=== PATIENT | male | born 1940 | race Caucasian/White ===

== ENCOUNTER 2025-05-20 13:29 | Outpatient (CLI) | payer OTHER, SELFPAY ==
--- NOTE | ~2025-05-20 | PE_ITS ---
EXAMINATION: PET_PETPSMAST_PT DATE: 05/21/2025 08:13 INDICATION: Prostate cancer TECHNIQUE: 4.583 mCi of Illucix Ga-[id number]) was administered i.v. Low dose computed tomography (CT) images were acquired from the base of the brain to the base of the brain to the proximal thighs for attenuation correction and anatomic localization. Positron emission tomography (PET) images were acquired in the same distribution beginning 67 minutes after injection. Images including fused PET/CT images were reconstructed in axial, coronal, and sagittal planes. Automated exposure control technique was employed. The dose-length product was 635.31mGy-cm. COMPARISON: None FINDINGS: Head/neck: Typical pattern of symmetric physiologic increased activity in the lacrimal, parotid and submandibular glands as well as along the mucosa of the nasal and oral cavities, pharynx and hypopharynx. No pathologically enlarged cervical lymphadenopathy or suspicious foci of increased uptake in the visualized head or neck. Chest: Elevation the right hemidiaphragm. Calcified right lower lobe nodule along with calcified right hilar lymph nodes consistent with old granulomatous disease. No other suspicious pulmonary nodules, pneumonia or pleural effusion. Cardiomegaly. Atherosclerotic coronary artery calcifications.. Postoperative change of median sternotomy and likely coronary artery bypass grafting. No pericardial effusion. Aortic valve calcification. Thoracic aorta is normal in caliber. No pathologically enlarged or PSMA avid thoracic lymphadenopathy. 5.2 x 3.2 cm right subscapularis intramuscular lipoma. Abdomen/pelvis/proximal thighs: Physiologic renal accumulation and excretion of activity in the kidneys, bladder and along portions of ureters. Mild prostatomegaly measuring 4.1 x 3.0 cm with a couple regions of increased activity the larger on the left with maximal SUV of 12.9 and the smaller on the right with SUV of 8.4 cm consistent with primary prostate cancer. Normal degree and slightly heterogenous pattern of increased uptake throughout the liver and spleen without radiologic correlate or dominant PSMA avid lesion.. Hepatic and splenic calcifications consistent with old granulomatous disease. Multiple calcific gallstones layering in the dependent aspect of the normal-appearing gallbladder. The gallbladder, pancreas and bila teral adrenal glands are normal. Moderate uptake scattered throughout the bowels with typical duodenal and proximal jejunal predominance and without radiologic correlate, also likely physiologic. Normal appendix. Moderate-sized fat- containing left inguinal hernia. No other abnormal foci of increased uptake or pathologically enlarged lymphadenopathy in the abdomen, pelvis or proximal thighs. Musculoskeletal: Severe lower cervical and mild to moderate thoracic and lumbar spondylosis. No suspicious lytic, blastic or abnormally PSMA avid bone lesions. IMPRESSION: 1. A couple regions of moderate increased uptake in the prostate consistent with primary prostate cancer. No evident metastatic disease. 2. Cardiomegaly. 3. Cholelithiasis. Reviewed, dictated and finalized at location A. [facility] IMPRESSION: 1. A couple regions of moderate increased uptake in the prostate consistent wit h primary prostate cancer. No evident metastatic disease. 2. Cardiomegaly. 3. Cholelithiasis.
== END 2025-05-20 13:30 | disposition home or self-care (01) ==
PROVIDERS: Visit Provider Urology
DX: C61 Malignant neoplasm of prostate (principal); K80.20 Calculus of gallbladder without cholecystitis without obstruction; I51.7 Cardiomegaly
CPT/HCPCS: 78815; A9596